=== PATIENT | female | born 1995 | race Two or more races ===

== ENCOUNTER 2018-11-25 09:46 | Emergency (ER) | payer SELFPAY ==
[~2018-11-25] VITALS: Ht 167.6 cm; Wt 63.5 kg
--- NOTE | 2018-11-25 09:51 | NUR ---
ED Nurse Note: Pt came into the ER under [employer] custody for medical clearance. Pt states that she takes xanax and if she does not get it she gets seizures. Pt denies having pain. Pt is A + Ox4. Ambulatory. Skin warm to touch.
[2018-11-25 09:52] VITALS: BP 125/65
[2018-11-25] MEDS ORDERED: XANAX2 MG ORAL (09:52)
[2018-11-25 10:30] VITALS: BP 123/66
[2018-11-25] MEDS ORDERED: ALPRAZolam 0.5mg tab ORAL ONE (10:30)
--- NOTE | 2018-11-25 10:31 | NUR ---
ER DISCHARGE NOTE: Patient is cleared to be discharged per ERMD, pt is aox4, on room air, with stable vital signs. pt was given dc and prescription instructions, pt was able to verbalize understanding, pt id band removed without complications. pt is able to ambulate with steady gait. pt took all belongings. Pt left in the custody of [employer].
--- NOTE | 2018-11-25 11:11 | Emergency Room Report ---
History of Present Illness General Chief Complaint: Medical Clearance Source: Patient, Law Enforcement Present Illness HPI 23-year-old female presents ED for evaluation. Patient is here for clearance for custody. Brought in by [employer]. Patient denies any pain or complaint. However states that she does have history of anxiety and takes Xanax 2 mg every day. States that she did not take her medication today and if she misses a dose she might have a seizure. Denies any seizure activity today. Feels very anxious. Denies hearing voices. Denies SI or HI. Denies alcohol or drug use. No other aggravating relieving factors. Denies any other associated symptoms Allergies: Coded Allergies: No Known Allergies (Unverified , 11/25/18) Patient History Past Medical History: psych hx Past Surgical History: none Pertinent Family History: none Social History: Denies: smoking, alcohol use, drug use Last Menstrual Period: last week Now: No Immunizations: UTD Reviewed Nursing Documentation: PMH: Agreed; PSxH: Agreed Nursing Documentation-PMH Past Medical History: No History, Except For History Of Psychiatric Problem: Yes Review of Systems All Other Systems: negative except mentioned in HPI Physical Exam Vital Signs Date Time Temp Pulse Resp B/P (MAP) Pulse Ox O2 Delivery O2 Flow Rate FiO2 11/25/18 09:46 97.7 91 20 99 Room Air 11/25/18 09:52 125/65 11/25/18 09:52 98 Sp02 EP Interpretation: reviewed, normal General Appearance: no apparent distress, alert, GCS 15, non-toxic Head: normocephalic, atraumatic Eyes: bilateral eye normal inspection, bilateral eye PERRL ENT: hearing grossly normal, normal pharynx, no angioedema, normal voice Neck: full range of motion, supple/symm/no masses Respiratory: chest non-tender, lungs clear, normal breath sounds, speaking full sentences Cardiovascular #1: regular rate, rhythm, no edema Cardiovascular #2: 2+ carotid (R), 2+ carotid (L), 2+ radial (R), 2+ radial (L) , 2+ dorsalis pedis (R), 2+ dorsalis pedis (L) Gastrointestinal: normal bowel sounds, non tender, soft, non-distended, no guarding, no rebound Rectal: deferred Genitourinary: normal inspection, no CVA tenderness Musculoskeletal: back normal, gait/station normal, normal range of motion, non- tender Neurologic: alert, oriented x3, responsive, motor strength/tone normal, sensory intact, speech normal Psychiatric: judgement/insight normal, memory normal, no suicidal/homicidal ideation, no delusions, anxious Reflexes: 3+ bicep (R), 3+ bicep (L), 3+ tricep (R), 3+ tricep (L), 3+ knee (R) , 3+ knee (L) Skin: normal color, no rash, warm/dry, well hydrated Lymphatic: no adenopathy Medical Decision Making Diagnostic Impression: Primary Impression: Medical clearance for incarceration ER Course Hospital Course 23-year-old female presents to ED for and alf clearance. h/o anxiety Clinical course Patient placed on stretcher. Handcuffs. After initial history, physical exam reveals a female in no acute distress. Appears anxious. Maintains good eye contact. Physical exam was unremarkable. We'll give 2 mg Xanax here. I believe patient be safely discharged into police custody. Diagnosis - medical clearance for incarceration stable and discharged into police custody Last Vital Signs Date Time Temp Pulse Resp B/P (MAP) Pulse Ox O2 Delivery O2 Flow Rate FiO2 11/25/18 10:30 97.7 65 20 123/66 98 Room Air 98 Status: improved Disposition: HOME, SELF-CARE Condition: Stable Referrals: NOT CHOSEN IPA/,REFERRING (PCP) [facility]. [facility] Departure Forms: Snf Clearance Patient Instructions: Panic Attacks, [id number] Jah Carcamo MD November 25, 2018 11:11
== END 2018-11-25 10:32 | disposition home or self-care (01) ==
LOC: EMR 10:20
DX: F41.9 Anxiety disorder, unspecified (principal)
CPT/HCPCS: 99282